=== PATIENT | male | born 1995 | race Two or more races ===

== ENCOUNTER 2023-03-17 15:18 | Inpatient (IN) | payer OTHER ==
[~2023-03-17] VITALS: Ht 177.8 cm; Wt 73.5 kg
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
--- NOTE | 2023-03-17 15:33 | NUR ---
AT BED SIDE FOR EVAL
[2023-03-17] MEDS ORDERED: ALBUTEROL FS 2.5 MG/3 ML VIAL.NEB ONE (15:39)
[2023-03-17] MEDS ORDERED: IPRATROPIUM NEB FS 0.5 MG/2.5 ML AMPUL.NEB ONE (15:39)
--- NOTE | 2023-03-17 15:45 | NUR ---
IV LINE 20 G RIGHT AC
--- NOTE | 2023-03-17 15:48 | NUR ---
BLOOD SAMPLE TAKEN SENT TO LAB
[2023-03-17] MEDS ORDERED: methylPREDNISolone SOD SUCC 125 MG/2ML VIAL ONE (15:58)
[2023-03-17] MEDS ORDERED: Magnesium 1GM/D5W 100ML PREMIX 100 ML IV ONE ×2 (15:58→17:27)
[2023-03-17] MEDS ORDERED: IPRATROPIUM NEB FS 0.5 MG/2.5 ML AMPUL.NEB NEB ONE (16:00)
[2023-03-17] MEDS ORDERED: ALBUTEROL FS 2.5 MG/3 ML VIAL.NEB CONTNEB ONE (16:00)
[2023-03-17] MEDS ORDERED: Magnesium 1GM/D5W 100ML PREMIX 200 ML IV ONE (16:00)
[2023-03-17] MEDS ORDERED: methylPREDNISolone SOD SUCC 125 MG/2ML VIAL IV ONE (16:00)
[2023-03-17 16:06] LABS: BASOPHILS % (AUTO) 0.3 % (0.0-2.0); EOSINOPHILS % (AUTO) 7.9 % (0.0-6.0); HEMATOCRIT 47 % (39-51); HEMOGLOBIN 15.4 g/dL (13.5-17.5); LYMPHOCYTES # (AUTO) 3.1 K/uL (0.8-4.8); LYMPHOCYTES % (AUTO) 30.1 % (20.0-44.0); MEAN CORPUSCULAR HGB CONC 33 g/dl (31.0-36.0); MEAN CORPUSCULAR VOLUME 87 fL (80-96); MONOCYTES # (AUTO) 0.8 K/uL (0.1-1.30); MONOCYTES % (AUTO) 7.6 % (2.0-12.0); NEUTROPHILS # (AUTO) 5.6 K/uL (1.8-8.9); NEUTROPHILS % (AUTO) 54.1 % (43.0-81.0); PLATELET COUNT (AUTO) 325 K/uL (150-450); RED BLOOD CELL COUNT(AUTO) 5.39 MIL/uL (4.5-6.0); WHITE BLOOD COUNT (AUTO) 10.3 K/uL (4.3-11.0)
[2023-03-17 16:24] LABS: CALCIUM, SERUM 9.7 mg/dL (8.5-10.1); CARBON DIOXIDE 25 mmol/L (21-32); CHLORIDE 103 mmol/L (98-107); GLUCOSE 126 mg/dL (74-106); POTASSIUM 3.9 mmol/L (3.5-5.1); SODIUM SERUM 139 mmol/L (136-145); UREA NITROGEN, BLOOD 15 mg/dL (7-18)
[2023-03-17 16:38] LABS: ALANINE AMINOTRANSFERASE 23 U/L (12-78); ALBUMIN 3.9 g/dL (3.4-5.0); ALKALINE PHOSPHATASE 73 U/L (46-116); ASPARTATE AMINOTRANSFERASE 18 U/L (15-37); BILIRUBIN,DIRECT 0.1 mg/dL (0.0-0.2); BILIRUBIN,TOTAL 0.7 mg/dL (0.2-1.0); TOTAL PROTEIN, SERUM 8.7 g/dL (6.4-8.2)
--- NOTE | 2023-03-17 16:46 | NUR ---
Jacob giron in [facility] - 03/17/23 at 1647 by LASHELL NAILA - [phone] " DAUGHTER "
--- NOTE | 2023-03-17 16:47 | NUR ---
NAILA [phone] " SISTER "
--- NOTE | 2023-03-17 17:20 | NUR ---
107. ADMITTING MADE AWARE
--- NOTE | 2023-03-17 17:22 | NUR ---
PATIENT ASSIGNED TO 113-1
--- NOTE | 2023-03-17 17:28 | NUR ---
RT NOTE Patient is refusing ABG procedure. Stating he is afraid of needles. Dr. Roberto aware of patients decision.
--- NOTE | 2023-03-17 17:42 | NUR ---
REPORT GIVEN TO STAN GARSIA
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
--- NOTE | 2023-03-17 18:40 | NUR ---
MOVED TO INPATIENT ROOM SAFELY PER PROTOCOL
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
--- NOTE | 2023-03-17 19:00 | NUR ---
RN OPENING NOTE RECEIVED PT AWAKE IN BED. PT IS A/O X4, ABLE TO MAKE NEEDS KNOWN. PT IS IN 2L O2 INHALATION VIA NASAL CANNULA TOLERATING WELL, BREATHING EVEN AND UNLABORED @THIS TIME. PT IV PRESENT IS ON THE RIGHT AC, INTACT, PATENT & FLUSHES WELL W/ NO S&SX OF INFILTRATION @ SITE NOTED. SAFETY MEASURES IS IN PLACE. BED IN LOWEST AND LOCKED POSITION. SIDE RAILS UP X 2. BEDSIDE TABLE AND CALL LIGHT IS EASY REACH. BED ALARM IS ON. WILL CONTINUE TO MONITOR PT ACCORDINGLY.
[2023-03-17 20:00] VITALS: BP 116/62
[2023-03-17] MEDS ORDERED: ACETAMINOPHEN 325 MG TABLET PO PRN (20:00)
[2023-03-17] MEDS ORDERED: MAGNESIUM HYDROXIDE 30 ML UDC PO PRN (20:00)
[2023-03-17] MEDS ORDERED: ONDANSETRON HCL/PF 4 MG/2 ML VIAL IVP PRN (20:00)
[2023-03-17] MEDS ORDERED: Z GUARD REMEDY 4 OZ OINT TP PRN (20:00)
[2023-03-17] MEDS ORDERED: methylPREDNISolone SOD SUCC 40 MG/ML VIAL IV SCH (21:00)
[2023-03-17] MEDS: ALBUTEROL FS 2.5 MG/3 ML VIAL.NEB NEB SCH (21:06)
[2023-03-17] MEDS: IPRATROPIUM NEB FS 0.5 MG/2.5 ML AMPUL.NEB NEB SCH (21:06)
[2023-03-17 21:11] VITALS: BP 130/78
[2023-03-17 22:57] VITALS: BP 163/98
[2023-03-18] VITALS: BP 134/68
[2023-03-18] MEDS: IPRATROPIUM NEB FS 0.5 MG/2.5 ML AMPUL.NEB NEB SCH ×2 (02:26→08:07)
[2023-03-18] MEDS: ALBUTEROL FS 2.5 MG/3 ML VIAL.NEB NEB SCH ×2 (02:26→08:07)
[2023-03-18 04:26] VITALS: BP 130/70
[2023-03-18 06:16] LABS: BASOPHILS % (AUTO) 0.4 % (0.0-2.0); EOSINOPHILS % (AUTO) 0.1 % (0.0-6.0); HEMATOCRIT 43 % (39-51); HEMOGLOBIN 14.6 g/dL (13.5-17.5); LYMPHOCYTES # (AUTO) 1.4 K/uL (0.8-4.8); LYMPHOCYTES % (AUTO) 14.1 % (20.0-44.0); MEAN CORPUSCULAR HGB CONC 34 g/dl (31.0-36.0); MEAN CORPUSCULAR VOLUME 87 fL (80-96); MONOCYTES # (AUTO) 0.5 K/uL (0.1-1.30); MONOCYTES % (AUTO) 4.6 % (2.0-12.0); NEUTROPHILS # (AUTO) 8.3 K/uL (1.8-8.9); NEUTROPHILS % (AUTO) 80.8 % (43.0-81.0); PLATELET COUNT (AUTO) 342 K/uL (150-450); RED BLOOD CELL COUNT(AUTO) 4.96 MIL/uL (4.5-6.0); WHITE BLOOD COUNT (AUTO) 10.2 K/uL (4.3-11.0)
--- NOTE | 2023-03-18 06:33 | NUR ---
RN OPENING NOTE PT AWAKE & RESTING COMFORTABLY IN BED. PT IS A/O X4, RESPONSIVE AND FOLLOWS VERBAL COMMAND. PT IS IN 2L O2 INHALATION VIA NASAL CANNULA W/ NO S&SX OF RESPIRATORY DISTRESS @THIS TIME. PT IV PRESENT IS ON THE RIGHT AC, INTACT, PATENT & FLUSHES WELL W/ NO S&SX OF INFILTRATION @ SITE NOTED. SAFETY MEASURES IS IN PLACE. BED IN LOWEST AND LOCKED POSITION. SIDE RAILS UP X 2. BEDSIDE TABLE AND CALL LIGHT IS EASY REACH. BED ALARM IS ON. WILL ENDORSE TO THE NEXT SHIFT FOR ANA.
[2023-03-18 06:41] LABS: CALCIUM, SERUM 9.6 mg/dL (8.5-10.1); CREATININE 0.8 mg/dL (0.6-1.3); MAGNESIUM 2.4 mg/dL (1.8-2.4); PHOSPHORUS 3.1 mg/dL (2.5-4.9); POTASSIUM 4.5 mmol/L (3.5-5.1)
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
[2023-03-18] MEDS ORDERED: PANTOPRAZOLE 40 MG TABLET.DR PO SCH (07:30)
[2023-03-18] MEDS ORDERED: METH4TAB17 PO (10:26)
[2023-03-18] MEDS ORDERED: ALBU8.5H8 INH (10:26)
[2023-03-18] MEDS ORDERED: FLUT1DIS INH (10:26)
--- NOTE | 2023-03-18 11:20 | NUR ---
PATIENT SIGNED DC PAPER .IV REMOVED.DC AMBULATORY.
[2023-03-18] MEDS ORDERED: predniSONE 20 MG TABLET PO SCH (20:00)
== END 2023-03-18 11:21 | disposition home or self-care (01) | DRG 133 ==
LOC: ER 15:24 → MEDSG1 18:30
PROVIDERS: ADMIT Nurse Practitioner Family; ATTEND Nurse Practitioner Family
DX: J96.01 Acute respiratory failure with hypoxia (principal); F17.210 Nicotine dependence, cigarettes, uncomplicated; J98.01 Acute bronchospasm; R73.9 Hyperglycemia, unspecified; Z86.19 Personal history of other infectious and parasitic diseases; Z20.822 Contact with and (suspected) exposure to COVID-19
CPT/HCPCS: 36415; 70220-TC; 71045-TC; 80048-TC; 80076-TC; 83735-TC; 83880; 84100-TC; 84484-TC; 85025-TC; 87081-TC; 94799-TC; G0378; J2930; J3475